=== PATIENT | male | born 1975 | race American Indian/Alaskan Native ===

== ENCOUNTER 2018-03-22 05:51 | Day surgery (SDC) | payer BC ==
[2018-02-23 12:05] VITALS: BMI 29.1
[2018-03-22] MEDS ORDERED: Midazolam 2 MG/2 ML VIAL ONE (07:40)
[2018-03-22] MEDS ORDERED: Propofol 10 mg/ml Inj (20 ML) ONE ×2 (07:41→09:42)
[2018-03-22] MEDS ORDERED: ceFAZolin 1 gm in NS 2 GM/200 ML BAG IVPB ONE (07:42)
[2018-03-22] MEDS ORDERED: Phenylephrine 10 mg/ml Inj ONE (07:45)
[2018-03-22] MEDS ORDERED: ePHEDrine 50 mg/ml Inj ONE (07:45)
[2018-03-22] MEDS: Bupivacaine 0.25% 20 ML INJ IJ ONE ×5 (08:14→10:26)
[2018-03-22] MEDS: Lidocaine/Epinephrine 1% 1:100000 10 ML IJ ONE ×2 (08:20→08:21)
[2018-03-22] MEDS ORDERED: Bupivacaine 0.25% 20 ML INJ IJ ONE (08:41)
[2018-03-22] MEDS ORDERED: Neostigmine Methylsulfate 3mg/3ml Syringe IV ONE (10:04)
--- NOTE | 2018-03-22 11:19 | PCM.SURG1 ---
Surgeon's Initial Post Op Note - Surgeon's Notes Surgeon: Dr. Boo Cissp: Dr. De PGY3, Vannesa YEN Type of Anesthesia: General Endo Pre-Operative Diagnosis: ventral hernia. umbilical hernia. diastasis Operative Findings: see operative report Post-Operative Diagnosis: see operative report Operation Performed: robotic umbilical hernia repair. robotic ventral hernia repair with mesh placement. robotic diastasis repair Specimen/Specimens Removed: hernia sac. hernia fat Estimated Blood Loss: EBL {In ML}: 10 Blood Products Given: N/A Drains Used: No Drains Post-Op Condition: Good Date of Surgery/Procedure: 03/22/18 Time of Surgery/Procedure: 08:00
[2018-03-22] MEDS ORDERED: Oxycodone/Acetaminophen 5/325 mg Tab PO PRN (11:23)
[2018-03-22] MEDS: HYDROmorphone 0.5 mg/0.5 ml ISec IVP PRN ×2 (11:30→11:54)
[2018-03-22 13:54] VITALS: TEMP 97.7
[2018-03-22 16:20] VITALS: BP 128/70; PULSE 58; RESP 18; O2SAT 100
--- NOTE | 2018-03-22 20:32 | OP ---
Copied To: John Boo MD Attending MD: John Boo MD PROCEDURE DATE: 03/22/2018 PREOPERATIVE DIAGNOSES: 1. Umbilical hernia. 2. Ventral hernia. 3. Diastasis recti. POSTOPERATIVE DIAGNOSES: 1. Umbilical hernia containing preperitoneal fat. 2. Incarcerated ventral hernia containing omentum and preperitoneal fat. 3. Diastasis recti approximately 10 x 4 cm size. OPERATIONS DONE: 1. Robotic umbilical hernia repair with a mesh. 2. Robotic incarcerated ventral hernia repair with a mesh. 3. Robotic diastasis recti repair with mesh. 4. Laparoscopic transversus abdominis plane block placement bilaterally. SURGEON: John Boo MD ASSISTANTS: 1. BIPIN Barry. 2. Carlos De, PGY-3 Resident. ANESTHESIA: General endotracheal tube anesthesia. ESTIMATED BLOOD LOSS: Around 10 mL. DRAINS: None. PATHOLOGY: 1. Umbilical hernial sac and content sent for the pathology. 2. Ventral hernial sac and content sent for the pathology. COMPLICATIONS: None. INTRAOPERATIVE FINDINGS: The patient had approximately 2 x 2 cm umbilical hernia and the patient had approximately 3 x 5 cm as well as 2 x 2 x 4 cm two ventral hernias containing omentum as well as preperitoneal fat and the patient also had a 10 x 4 cm diastasis recti. DESCRIPTION OF PROCEDURE: On intraoperative steps, this is a 42-year-old male who was diagnosed with umbilical hernia as well as ventral hernia and diastasis recti, and the patient was consented for the robotic repair of umbilical hernia, ventral hernia, and diastasis recti repair with mesh, and brought to the OR, placed supine on operating table. After induction of general anesthesia, the abdomen was prepped and draped in the usual sterile fashion. Using the Visiport technique in the left upper quadrant, an incision was made. The peritoneal cavity was entered, pneumo was created, and another 8-mm port was placed in the left flank as well as the right flank and robot was brought in. Camera arm as well as arm 1 and arm 2 was docked, and the patient was found to have incarcerated omentum into the ventral hernia and the omentum was reduced back into the peritoneal cavity and the lysis of adhesion was done. The patient also had umbilical hernia that was also reduced back into the peritoneal cavity. The patient had another ventral hernia containing preperitoneal fat that was also reduced and fat was excised. The patient had a 10 x 4 cm diastasis recti that was demarcated and preperitoneal fat was removed, and now first, the umbilical hernial defect was closed in two layers with #1 loop PDS. The two ventral hernial defects were also closed with #1 Prolene V-Loc suture in a three layer and diastasis recti repair was done by marking the right and left rectus muscles and both muscles edges were approximated in the midline with #1 Prolene V-Loc suture in a two layer. After proper closure of all the defects, a large 19 x 9 cm mesh was introduced and the mesh was implanted. After proper implantation of the mesh, all the specimen was taken out. The bilateral TAP block was given, the left and right side, 30:30 mL of Marcaine was injected and after TAP block, all the port was taken out under vision. Pneumo was deflated. All the port sites were closed in two layers, the subcu with 0 Vicryl and skin with a 4-0 Monocryl. The left upper quadrant port site was closed with 0 Vicryl for the fascia and peritoneum, and dry sterile dressing was applied. The patient was extubated in the OR, sent to the postanesthesia care unit in stable condition. There was no apparent complication. John Boo MD
== END 2018-03-22 16:05 | disposition home or self-care (01) ==
LOC: C.SDS 05:51
PROVIDERS: ATTEND Surgery Surgical Critical Care
DX: K42.9 Umbilical hernia without obstruction or gangrene (principal); K43.6 Other and unspecified ventral hernia with obstruction, without gangrene; M62.08 Separation of muscle (nontraumatic), other site
CPT/HCPCS: 22999; 49653; 82948; 88302; C1781; J0690; J1170; J2250; J2370; J2405; J2704; J2710; J3010